=== PATIENT | female | born 1955 | race Caucasian/White ===

== ENCOUNTER → 2025-10-29 20:57 | Outpatient (BNV) | payer MEDICARE, OTHER, SELFPAY | PROVIDERS: Emergency Provider Emergency Medicine; Visit Provider Specialist | DX: A41.9 Sepsis, unspecified organism (principal); R41.82 Altered mental status, unspecified; Z04.3 Encounter for examination and observation following other accident | CPT/HCPCS: 70450; 71045; 72125 ==

== ENCOUNTER → 2025-10-29 20:58 | Outpatient (BNV) | payer MEDICARE, OTHER, SELFPAY | PROVIDERS: Admitting Provider Physician Assistant; Emergency Provider Emergency Medicine; Visit Provider Internal Medicine | DX: R00.0 Tachycardia, unspecified (principal) | CPT/HCPCS: 93010 ==

== ENCOUNTER 2025-10-30 01:17 | Outpatient (BNV) | payer MEDICARE, SELFPAY | END 2025-10-30 02:00 | PROVIDERS: Admitting Provider Physician Assistant; Emergency Provider Emergency Medicine; Visit Provider General Practice | DX: K82.8 Other specified diseases of gallbladder (principal); R91.8 Other nonspecific abnormal finding of lung field | CPT/HCPCS: 70551; 74178 ==

== ENCOUNTER 2025-10-30 01:17 | Outpatient (BNV) | payer MEDICARE, OTHER, SELFPAY | END 2025-11-01 12:45 | PROVIDERS: Admitting Provider Physician Assistant; Emergency Provider Emergency Medicine; PCP Internal Medicine; Visit Provider Psychiatry & Neurology Neurology | DX: R56.9 Unspecified convulsions (principal) | CPT/HCPCS: 95816 ==

== ENCOUNTER 2025-10-30 01:17 | Outpatient (BNV) | payer MEDICARE, OTHER, SELFPAY | END 2025-10-30 12:00 | PROVIDERS: Admitting Provider Physician Assistant; Emergency Provider Emergency Medicine; Visit Provider Internal Medicine | DX: I51.89 Other ill-defined heart diseases (principal) | CPT/HCPCS: 93306 ==

== ENCOUNTER 2025-10-30 01:17 | Outpatient (BNV) | payer MEDICARE, OTHER, SELFPAY | END 2025-10-31 17:56 | PROVIDERS: Admitting Provider Physician Assistant; Emergency Provider Emergency Medicine; Visit Provider Radiology Diagnostic Radiology | DX: K82.8 Other specified diseases of gallbladder (principal) | CPT/HCPCS: 76705 ==

== ENCOUNTER → 2025-10-30 01:17 | Outpatient (BNV) | payer MEDICARE, OTHER, SELFPAY | PROVIDERS: Admitting Provider Physician Assistant; Emergency Provider Emergency Medicine; Visit Provider Physician Assistant | DX: K92.2 Gastrointestinal hemorrhage, unspecified (principal); K22.10 Ulcer of esophagus without bleeding; E87.6 Hypokalemia; M62.82 Rhabdomyolysis; R29.818 Other symptoms and signs involving the nervous system; G93.40 Encephalopathy, unspecified | CPT/HCPCS: 99223; 99232; 99233; 99499 ==

== ENCOUNTER → 2025-10-30 01:17 | Outpatient (BNV) | payer MEDICARE, OTHER, SELFPAY | PROVIDERS: Admitting Provider Physician Assistant; Emergency Provider Emergency Medicine; Visit Provider Psychiatry & Neurology Neurology | DX: R29.6 Repeated falls (principal); M62.82 Rhabdomyolysis; G93.40 Encephalopathy, unspecified; R29.818 Other symptoms and signs involving the nervous system; G23.8 Other specified degenerative diseases of basal ganglia | CPT/HCPCS: 99223 ==

== ENCOUNTER → 2025-10-30 01:17 | Outpatient (BNV) | payer MEDICARE, OTHER, SELFPAY | PROVIDERS: Admitting Provider Physician Assistant; Emergency Provider Emergency Medicine; Visit Provider Internal Medicine | DX: R79.89 Other specified abnormal findings of blood chemistry (principal); R78.81 Bacteremia | CPT/HCPCS: 99232 ==